=== PATIENT | male | born 1935 | race Caucasian/White ===

== ENCOUNTER 2016-07-25 16:23 | Emergency (ER) | payer OTHER, MEDICAID ==
[~2016-07-25 16:23] MED LIST: ALLOPURINOL100 MG PO; AMLODIPINE BESY10 M1 PO; ASPIR 8181 MG PO; ASPIR LOW81 MG PO; BACTRIM DS1 TAB PO; CARAFATE1 GM PO; CREON1 EC1 PO; DIPHENOXYLATE/A1 TAB PO; DYA PO; KEFLEX500 MG PO; LAC PO; LANTUS SOLOS100 U/M1; LANTUS SOLOS100 U/M1 SC; LANTUS SOLOS100 U/M1 SQ; LISINOPRIL20 MG PO; LISINOPRIL40 MG PO; MAXZIDE1 TAB PO; METOCLOPRAMIDE5 M1 PO; NEU300 PO; NOR10T PO; NORCO1 TA2 PO; PANTOPRAZOLE SO40 M1 PO; RANITIDINE15 MG/M1 PO; SIMVASTATIN20 M1 PO; SIMVASTATIN40 M1 PO; ZOF4 PO; ZOFRAN ODT4 MG SL
[2016-07-25 18:40] LABS: UA SPECIFIC GRAVITY >=1.030 (1.005-1.035); microscopic required? YES; urine erythrocyte 1+ (NEGATIVE)
[2016-07-25 18:40] LABS: BASOPHIL % 0.5 % (0-2); PLATELET COUNT 162 x10^3mcL (130-400); RED CELL DISTRIBUTION WIDTH 14.4 % (11.5-14.5)
[2016-07-25 18:48] LABS: CALCIUM 9.2 mg/dL (8.5-10.1); CARBON DIOXIDE 30.7 mmol/L (21-32); CHLORIDE SERUM 103 mmol/L (98-107); CREATININE SERUM 2.2 mg/dL (0.7-1.3); GLUCOSE SERUM 257 mg/dL (74-106); POTASSIUM SERUM 3.6 mmol/L (3.5-5.1); SODIUM SERUM 141 mmol/L (136-145)
[2016-07-25 18:53] LABS: ALBUMIN 3.8 g/dL (3.4-5.0); ALKALINE PHOSPHATASE 87 U/L (46-116); ALT/SGPT 21 U/L (16-63); AST/SGOT 16 U/L (15-37); BILIRUBIN TOTAL 0.5 mg/dL (0.20-1.00); LIPASE 51 IU/L (73-393); MAGNESIUM 2.2 mg/dL (1.8-2.4); TOTAL PROTEIN, SERUM 7.4 g/dL (6.4-8.2)
[2016-07-25 20:30] VITALS: BP 149/83
== END 2016-07-25 20:30 | disposition home or self-care (01) ==
LOC: ED 16:23
PROVIDERS: Emergency Medicine
DX: K59.00 Constipation, unspecified (principal); E11.22 Type 2 diabetes mellitus with diabetic chronic kidney disease; I12.9 Hypertensive chronic kidney disease with stage 1 through stage 4 chronic kidney disease, or unspecified chronic kidney disease; N18.9 Chronic kidney disease, unspecified; F17.200 Nicotine dependence, unspecified, uncomplicated; K86.1 Other chronic pancreatitis; E78.5 Hyperlipidemia, unspecified; Z86.73 Personal history of transient ischemic attack (TIA), and cerebral infarction without residual deficits
CPT/HCPCS: 83880; J2270; J2405; J3490; J7030

== ENCOUNTER 2016-09-11 09:29 | Emergency (ER) | payer OTHER ==
[~2016-09-11] VITALS: Ht 160 cm; Wt 65.3 kg
[2016-09-11 10:52] LABS: BASOPHIL % 0.4 % (0-2); PLATELET COUNT 170 x10^3mcL (130-400)
[2016-09-11 10:53] LABS: RED CELL DISTRIBUTION WIDTH 15.2 % (11.5-14.5)
[2016-09-11 11:13] LABS: CALCIUM 8.9 mg/dL (8.5-10.1); CARBON DIOXIDE 32.5 mmol/L (21-32); CHLORIDE SERUM 104 mmol/L (98-107); GLUCOSE SERUM 93 mg/dL (74-106); POTASSIUM SERUM 4.5 mmol/L (3.5-5.1); SODIUM SERUM 142 mmol/L (136-145)
[2016-09-11 11:18] LABS: ALBUMIN 3.5 g/dL (3.4-5.0); ALKALINE PHOSPHATASE 89 U/L (46-116); ALT/SGPT 15 U/L (16-63); AST/SGOT 15 U/L (15-37); BILIRUBIN TOTAL 0.5 mg/dL (0.20-1.00); CHOLESTEROL 146 mg/dL (<200)
[2016-09-11 11:28] LABS: HDL CHOLESTEROL 61 mg/dL (40-60)
[2016-09-11 11:29] LABS: CALCIUM 8.5 mg/dL (8.5-10.1); MAGNESIUM 1.9 mg/dL (1.8-2.4); T4(THYROXINE) 7.8 ug/dL (4.7-13.3)
[2016-09-11 12:47] LABS: microscopic required? YES; urine erythrocyte TRACE (NEGATIVE)
[2016-09-11 12:56] LABS: AMPHETAMINE QUAL UR NONE DETECTED (NEG <=1000)
[2016-09-11 14:48] VITALS: BP 173/92
== END 2016-09-11 14:48 | disposition home or self-care (01) ==
LOC: ED 09:29
PROVIDERS: Emergency Medicine
DX: R42 Dizziness and giddiness (principal); R53.1 Weakness; F12.90 Cannabis use, unspecified, uncomplicated; I10 Essential (primary) hypertension; E78.00 Pure hypercholesterolemia, unspecified; E11.40 Type 2 diabetes mellitus with diabetic neuropathy, unspecified; I45.10 Unspecified right bundle-branch block; H57.02 Anisocoria; F17.210 Nicotine dependence, cigarettes, uncomplicated; Z79.4 Long term (current) use of insulin; Z79.899 Other long term (current) drug therapy; Z87.438 Personal history of other diseases of male genital organs; Z71.6 Tobacco abuse counseling
CPT/HCPCS: 82962; 83880; 99406; J2550; J7030; J8597; Q0092

== ENCOUNTER 2017-02-18 12:11 | Inpatient (IN) | payer OTHER, MEDICAID ==
[~2017-02-18] VITALS: Ht 157.5 cm; Wt 69.5 kg
[2017-02-18 12:58] LABS: BASOPHIL % 0.4 % (0-2); PLATELET COUNT 143 x10^3mcL (130-400); RED CELL DISTRIBUTION WIDTH 14.1 % (11.5-14.5)
[2017-02-18 13:27] LABS: CALCIUM 8.6 mg/dL (8.5-10.1); CARBON DIOXIDE 29.5 mmol/L (21-32); CHLORIDE SERUM 104 mmol/L (98-107); CREATININE SERUM 2.1 mg/dL (0.7-1.3); GLUCOSE SERUM 198 mg/dL (74-106); POTASSIUM SERUM 4.2 mmol/L (3.5-5.1); SODIUM SERUM 140 mmol/L (136-145)
[2017-02-18 13:33] LABS: ALBUMIN 3.4 g/dL (3.4-5.0); ALKALINE PHOSPHATASE 68 U/L (46-116); ALT/SGPT 14 U/L (16-63); AST/SGOT 17 U/L (15-37); BILIRUBIN TOTAL 0.3 mg/dL (0.20-1.00); CHOLESTEROL 139 mg/dL (<200); HDL CHOLESTEROL 47 mg/dL (40-60); LIPASE 34 IU/L (73-393); TRIGLYCERIDES 111 mg/dL (<150)
[2017-02-18 13:39] LABS: FREE T4 1.15 ng/dL (0.76-1.46); T4(THYROXINE) 8.2 ug/dL (4.7-13.3)
[2017-02-18 14:46] LABS: UA SPECIFIC GRAVITY 1.025 (1.005-1.035); microscopic required? YES; urine erythrocyte NEGATIVE (NEGATIVE)
[2017-02-18] MEDS ORDERED: LISINOPRIL40 MG PO (15:47)
[2017-02-18] MEDS ORDERED: NOR5 PO (15:48)
[2017-02-18] MEDS ORDERED: MECLIZINE HYDRO25 M1 PO ×2 (15:49→16:04)
[2017-02-18] MEDS ORDERED: TRAMADOL HCL50 MG PO ×2 (15:50→15:52)
[2017-02-18] MEDS ORDERED: PROCHLORPERAZIN10 MG PO (15:53)
[2017-02-18] MEDS ORDERED: ACT30 PO (15:54)
[2017-02-18] MEDS ORDERED: LANTUS SOLOS100 U/M1 SQ (16:00)
[2017-02-18 16:14] LABS: T3 TOTAL 0.82 ng/mL
[2017-02-18 16:40] VITALS: BP 188/83
[2017-02-18 17:00] LABS: MAGNESIUM 2.3 mg/dL (1.8-2.4); PHOSPHOROUS 3.3 mg/dL (2.5-4.9)
[2017-02-18 18:42] LABS: AMPHETAMINE QUAL UR NONE DETECTED (NEG <=1000)
[2017-02-18 19:57] VITALS: Ht 157.5 cm; Wt 69.5 kg
[2017-02-18 21:44] VITALS: BP 132/84
[2017-02-18 22:30] VITALS: BP 133/73
[2017-02-19 05:12] VITALS: BP 164/71
[2017-02-19 06:04] LABS: CALCIUM 8.4 mg/dL (8.5-10.1); CARBON DIOXIDE 26.8 mmol/L (21-32); CHLORIDE SERUM 108 mmol/L (98-107); CREATININE SERUM 1.7 mg/dL (0.7-1.3); GLUCOSE SERUM 114 mg/dL (74-106); POTASSIUM SERUM 4.2 mmol/L (3.5-5.1); SODIUM SERUM 141 mmol/L (136-145)
[2017-02-19 06:17] LABS: BASOPHIL % 0.6 % (0-2)
[2017-02-19 06:27] LABS: RED CELL DISTRIBUTION WIDTH 13.7 % (11.5-14.5)
[2017-02-19 06:34] LABS: PLATELET COUNT 129 x10^3mcL (130-400)
[2017-02-19 06:44] VITALS: BP 158/75
[2017-02-19 09:20] VITALS: BP 162/77
[2017-02-19 13:52] VITALS: BP 148/73
[2017-02-19 19:53] LABS: CALCIUM 8.3 mg/dL (8.5-10.1); CARBON DIOXIDE 25.2 mmol/L (21-32); CHLORIDE SERUM 104 mmol/L (98-107); CREATININE SERUM 1.8 mg/dL (0.7-1.3); GLUCOSE SERUM 108 mg/dL (74-106); POTASSIUM SERUM 3.9 mmol/L (3.5-5.1); SODIUM SERUM 138 mmol/L (136-145)
[2017-02-19 21:58] VITALS: BP 164/69
[2017-02-20 05:58] VITALS: BP 146/53
[2017-02-20 09:10] VITALS: BP 167/66
== END 2017-02-20 09:50 | disposition left against medical advice (07) | DRG 391 ==
LOC: ED 12:11 → DU 15:44
PROVIDERS: Family Medicine; Specialist; ADMIT Family Medicine
DX: K52.9 Noninfective gastroenteritis and colitis, unspecified (principal); N17.0 Acute kidney failure with tubular necrosis; I50.43 Acute on chronic combined systolic (congestive) and diastolic (congestive) heart failure; K86.1 Other chronic pancreatitis; N18.4 Chronic kidney disease, stage 4 (severe); I12.9 Hypertensive chronic kidney disease with stage 1 through stage 4 chronic kidney disease, or unspecified chronic kidney disease; E11.42 Type 2 diabetes mellitus with diabetic polyneuropathy; E11.65 Type 2 diabetes mellitus with hyperglycemia; I16.0 Hypertensive urgency; N28.1 Cyst of kidney, acquired; K21.9 Gastro-esophageal reflux disease without esophagitis; K76.0 Fatty (change of) liver, not elsewhere classified; E78.5 Hyperlipidemia, unspecified; R80.9 Proteinuria, unspecified; Z79.4 Long term (current) use of insulin; Z68.28 Body mass index [BMI] 28.0-28.9, adult; Z87.891 Personal history of nicotine dependence; Z86.73 Personal history of transient ischemic attack (TIA), and cerebral infarction without residual deficits
CPT/HCPCS: 82962; 83880; 84439; 97110-GP; J1170; J1885; J2405; J3010; J3490; J7030; Q0092; Q9966; Q9967

== ENCOUNTER 2017-03-03 12:51 | Emergency (ER) | payer OTHER, MEDICAID ==
[~2017-03-03 12:51] MED LIST changes: +ACT30 PO; +MECLIZINE HYDRO25 M1 PO; +NOR5 PO; +PROCHLORPERAZIN10 MG PO; +TRAMADOL HCL50 MG PO
[2017-03-03 13:21] LABS: BASOPHIL % 0.6 % (0-2); PLATELET COUNT 169 x10^3mcL (130-400)
[2017-03-03 13:57] LABS: ALBUMIN 3.8 g/dL (3.4-5.0); ALKALINE PHOSPHATASE 58 U/L (46-116); ALT/SGPT 17 U/L (16-63); AST/SGOT 14 U/L (15-37); BILIRUBIN TOTAL 0.6 mg/dL (0.20-1.00); CALCIUM 8.8 mg/dL (8.5-10.1); CARBON DIOXIDE 27.8 mmol/L (21-32); CHLORIDE SERUM 103 mmol/L (98-107); CREATININE SERUM 2.2 mg/dL (0.7-1.3); GLUCOSE SERUM 199 mg/dL (74-106); LIPASE 32 IU/L (73-393); POTASSIUM SERUM 3.2 mmol/L (3.5-5.1); SODIUM SERUM 139 mmol/L (136-145); TOTAL PROTEIN, SERUM 7.1 g/dL (6.4-8.2)
[2017-03-03 15:26] VITALS: BP 167/96
== END 2017-03-03 15:26 | disposition home or self-care (01) ==
LOC: ED 12:51
PROVIDERS: Emergency Medicine
DX: K86.1 Other chronic pancreatitis (principal); G89.29 Other chronic pain; I10 Essential (primary) hypertension; E11.9 Type 2 diabetes mellitus without complications; E78.00 Pure hypercholesterolemia, unspecified; F03.90 Unspecified dementia, unspecified severity, without behavioral disturbance, psychotic disturbance, mood disturbance, and anxiety
CPT/HCPCS: J1170; J2405; J7030; Q0163

== ENCOUNTER 2017-03-13 12:30 | Emergency (ER) | payer OTHER, MEDICAID ==
[~2017-03-13] VITALS: Ht 165.1 cm; Wt 65.8 kg
[2017-03-13 12:44] VITALS: BP 156/66; Ht 165.1 cm; Wt 65.8 kg
== END 2017-03-13 16:26 | disposition left against medical advice (07) ==
LOC: ED 12:30
DX: Z53.21 Procedure and treatment not carried out due to patient leaving prior to being seen by health care provider (principal)

== ENCOUNTER 2017-03-25 12:10 | Inpatient (IN) | payer OTHER, MEDICAID ==
[~2017-03-25] VITALS: Ht 157.5 cm; Wt 64.1 kg
[2017-03-25] MEDS ORDERED: ZOFRAN8 MG PO (13:25)
[2017-03-25 13:59] LABS: RED CELL DISTRIBUTION WIDTH 13.7 % (11.5-14.5)
[2017-03-25 14:00] LABS: CARBON DIOXIDE 27.3 mmol/L (21-32); CHLORIDE SERUM 99 mmol/L (98-107); CREATININE SERUM 2.1 mg/dL (0.7-1.3); GLUCOSE SERUM 145 mg/dL (74-106); POTASSIUM SERUM 4.2 mmol/L (3.5-5.1); SODIUM SERUM 136 mmol/L (136-145)
[2017-03-25 14:04] LABS: BASOPHIL % 0.3 % (0-2); PLATELET COUNT 174 x10^3mcL (130-400)
[2017-03-25 14:05] LABS: ALBUMIN 3.8 g/dL (3.4-5.0); ALKALINE PHOSPHATASE 65 U/L (46-116); ALT/SGPT 18 U/L (16-63); AST/SGOT 21 U/L (15-37); LIPASE 36 IU/L (73-393); TOTAL PROTEIN, SERUM 7.5 g/dL (6.4-8.2)
[2017-03-25 16:54] LABS: MAGNESIUM 2.3 mg/dL (1.8-2.4); PHOSPHOROUS 3.4 mg/dL (2.5-4.9)
[2017-03-25 17:02] LABS: FREE T4 1.51 ng/dL (0.76-1.46); T4(THYROXINE) 10.6 ug/dL (4.7-13.3)
[2017-03-25 17:15] VITALS: BP 200/94
[2017-03-25 17:51] LABS: T3 TOTAL 0.87 ng/mL
[2017-03-25 18:02] VITALS: BP 179/86
[2017-03-25 18:57] VITALS: BP 170/87
[2017-03-25 19:27] LABS: UA SPECIFIC GRAVITY 1.025 (1.005-1.035); microscopic required? YES; urine erythrocyte TRACE (NEGATIVE)
[2017-03-25 20:40] VITALS: BP 162/82
[2017-03-25 22:01] VITALS: BP 157/81
[2017-03-25 23:20] VITALS: BP 141/76
[2017-03-26 05:15] VITALS: BP 147/74
[2017-03-26 05:42] VITALS: BP 147/74
[2017-03-26 06:43] LABS: CALCIUM 8.4 mg/dL (8.5-10.1); CHLORIDE SERUM 100 mmol/L (98-107); CREATININE SERUM 1.8 mg/dL (0.7-1.3); GLUCOSE SERUM 184 mg/dL (74-106); PHOSPHOROUS 3.1 mg/dL (2.5-4.9); POTASSIUM SERUM 3.8 mmol/L (3.5-5.1); SODIUM SERUM 134 mmol/L (136-145)
[2017-03-26 06:49] LABS: BASOPHIL % 0.4 % (0-2); PLATELET COUNT 151 x10^3mcL (130-400); RED CELL DISTRIBUTION WIDTH 13.5 % (11.5-14.5)
[2017-03-26 09:21] VITALS: BP 155/81
[2017-03-26 14:34] VITALS: BP 149/72
[2017-03-26 17:37] VITALS: BP 152/68
[2017-03-26 21:01] VITALS: BP 144/63
[2017-03-27 05:33] VITALS: BP 156/64
[2017-03-27 06:12] LABS: CARBON DIOXIDE 23.9 mmol/L (21-32); CHLORIDE SERUM 104 mmol/L (98-107); CREATININE SERUM 1.9 mg/dL (0.7-1.3); GLUCOSE SERUM 119 mg/dL (74-106); MAGNESIUM 1.8 mg/dL (1.8-2.4); PHOSPHOROUS 3.2 mg/dL (2.5-4.9); POTASSIUM SERUM 3.3 mmol/L (3.5-5.1); SODIUM SERUM 139 mmol/L (136-145)
[2017-03-27 06:31] LABS: BASOPHIL % 0.2 % (0-2); PLATELET COUNT 148 x10^3mcL (130-400); RED CELL DISTRIBUTION WIDTH 14.2 % (11.5-14.5)
[2017-03-27 08:56] VITALS: BP 130/60
[2017-03-27 11:13] VITALS: Ht 157.5 cm; Wt 64.1 kg
[2017-03-27 11:30] VITALS: BP 130/60
[2017-03-27] MEDS ORDERED: ASPIR LOW81 MG PO (11:30)
[2017-03-27] MEDS ORDERED: CARAFATE1 GM PO (11:32)
[2017-03-27] MEDS ORDERED: GLIPIZIDE ER2.5 M1 PO (11:45)
[2017-03-27] MEDS ORDERED: PROTONIX40 MG/Pac1 PO (11:46)
[2017-03-27] MEDS ORDERED: REGLAN10 M1 PO (11:48)
[2017-03-27] MEDS ORDERED: LAC PO (12:09)
[2017-03-27] MEDS ORDERED: LEVAQUIN250 M1 PO (12:09)
[2017-03-27] MEDS ORDERED: ZOFRAN8 MG PO (12:30)
[2017-03-27] MEDS ORDERED: DONNATAL E16.2 MG/5 PO (12:31)
[2017-03-27] MEDS ORDERED: METOCLOPRAMIDE H5 M2 PO (12:31)
[2017-03-27 13:09] VITALS: BP 155/61
== END 2017-03-27 13:49 | disposition home or self-care (01) | DRG 73 ==
LOC: ED 12:10 → DU 15:50
PROVIDERS: Emergency Medicine Emergency Medical Services; Family Medicine; Internal Medicine
PROC: 0DB68ZX Excision of Stomach, Via Natural or Artificial Opening Endoscopic, Diagnostic (ICD-10-PCS; 2017-03-26)
PROC: 0DB98ZX Excision of Duodenum, Via Natural or Artificial Opening Endoscopic, Diagnostic (ICD-10-PCS; principal; 2017-03-26 11:30)
DX: E11.43 Type 2 diabetes mellitus with diabetic autonomic (poly)neuropathy (principal); N17.0 Acute kidney failure with tubular necrosis; I12.0 Hypertensive chronic kidney disease with stage 5 chronic kidney disease or end stage renal disease; K31.84 Gastroparesis; K29.70 Gastritis, unspecified, without bleeding; D01.7 Carcinoma in situ of other specified digestive organs; E11.65 Type 2 diabetes mellitus with hyperglycemia; E11.51 Type 2 diabetes mellitus with diabetic peripheral angiopathy without gangrene; E11.22 Type 2 diabetes mellitus with diabetic chronic kidney disease; N18.9 Chronic kidney disease, unspecified; E11.40 Type 2 diabetes mellitus with diabetic neuropathy, unspecified; N30.90 Cystitis, unspecified without hematuria; N28.1 Cyst of kidney, acquired; I16.0 Hypertensive urgency; I36.1 Nonrheumatic tricuspid (valve) insufficiency; E78.5 Hyperlipidemia, unspecified; F17.210 Nicotine dependence, cigarettes, uncomplicated; Z68.22 Body mass index [BMI] 22.0-22.9, adult; Z86.73 Personal history of transient ischemic attack (TIA), and cerebral infarction without residual deficits; Z79.82 Long term (current) use of aspirin; Z79.4 Long term (current) use of insulin
CPT/HCPCS: 43235; 82962; 83880; 84439; 94150; 97110-GP; 97116-GP; 97530-GP; G0480; J1200; J1364; J1610; J1956; J2250; J2270; J2310; J2405; J3010; J3490; J7030; J7040; Q0092

== ENCOUNTER 2017-05-06 13:41 | Emergency (ER) | payer OTHER, MEDICAID ==
[~2017-05-06] VITALS: Ht 172.7 cm; Wt 81.6 kg
[~2017-05-06 13:41] MED LIST changes: +DONNATAL E16.2 MG/5 PO; +GLIPIZIDE ER2.5 M1 PO; +LEVAQUIN250 M1 PO; +METOCLOPRAMIDE H5 M2 PO; +PROTONIX40 MG/Pac1 PO; +REGLAN10 M1 PO; +ZOFRAN8 MG PO
[2017-05-06 13:53] VITALS: Ht 172.7 cm; Wt 81.6 kg
[2017-05-06 15:06] LABS: BASOPHIL % 0.3 % (0-2); PLATELET COUNT 177 x10^3mcL (130-400); RED CELL DISTRIBUTION WIDTH 14.4 % (11.5-14.5)
[2017-05-06 15:14] LABS: CALCIUM 8.4 mg/dL (8.5-10.1); CARBON DIOXIDE 26.8 mmol/L (21-32); CHLORIDE SERUM 102 mmol/L (98-107); CREATININE SERUM 1.9 mg/dL (0.7-1.3); GLUCOSE SERUM 161 mg/dL (74-106); POTASSIUM SERUM 3.8 mmol/L (3.5-5.1); SODIUM SERUM 139 mmol/L (136-145)
[2017-05-06 15:30] LABS: ALBUMIN 3.4 g/dL (3.4-5.0); ALKALINE PHOSPHATASE 63 U/L (46-116); ALT/SGPT 17 U/L (16-63); AST/SGOT 15 U/L (15-37); BILIRUBIN TOTAL 0.37 mg/dL (0.20-1.00); LIPASE 35 IU/L (73-393); TOTAL PROTEIN, SERUM 6.9 g/dL (6.4-8.2)
[2017-05-06 16:51] VITALS: BP 161/91
== END 2017-05-06 16:51 | disposition home or self-care (01) ==
LOC: ED 13:41
PROVIDERS: Emergency Medicine
DX: R10.9 Unspecified abdominal pain (principal)
CPT/HCPCS: J1170; J2405; J7030

== ENCOUNTER 2017-06-22 13:44 | Emergency (ER) | payer OTHER, MEDICAID ==
[~2017-06-22] VITALS: Ht 157.5 cm; Wt 59.0 kg
[2017-06-22 13:50] VITALS: Ht 157.5 cm; Wt 59.0 kg
[2017-06-22 15:24] LABS: BASOPHIL % 0.5 % (0-2); PLATELET COUNT 177 x10^3mcL (130-400); RED CELL DISTRIBUTION WIDTH 13.9 % (11.5-14.5)
[2017-06-22 15:58] LABS: CALCIUM 8.6 mg/dL (8.5-10.1); CARBON DIOXIDE 25.6 mmol/L (21-32); CHLORIDE SERUM 102 mmol/L (98-107); CREATININE SERUM 2.1 mg/dL (0.7-1.3); GLUCOSE SERUM 160 mg/dL (74-106); POTASSIUM SERUM 4.5 mmol/L (3.5-5.1); SODIUM SERUM 137 mmol/L (136-145)
[2017-06-22 16:03] LABS: ALBUMIN 3.3 g/dL (3.4-5.0); ALKALINE PHOSPHATASE 78 U/L (46-116); ALT/SGPT 16 U/L (16-63); AST/SGOT 17 U/L (15-37); BILIRUBIN TOTAL 0.41 mg/dL (0.20-1.00); LIPASE 26 IU/L (73-393)
[2017-06-22 18:02] VITALS: BP 126/77
== END 2017-06-22 18:02 | disposition home or self-care (01) ==
LOC: ED 13:44
PROVIDERS: Emergency Medicine
DX: R10.11 Right upper quadrant pain (principal); R11.2 Nausea with vomiting, unspecified; I10 Essential (primary) hypertension; E78.00 Pure hypercholesterolemia, unspecified; E11.40 Type 2 diabetes mellitus with diabetic neuropathy, unspecified; F03.90 Unspecified dementia, unspecified severity, without behavioral disturbance, psychotic disturbance, mood disturbance, and anxiety; Z87.19 Personal history of other diseases of the digestive system
CPT/HCPCS: 83880; J1885; J2405; J3010; J7030; Q0092